=== PATIENT | female | born 1995 | race Caucasian/White ===

== ENCOUNTER 2021-06-01 06:58 | Emergency (ER) | payer OTHER ==
[~2021-06-01] VITALS: Ht 162.6 cm; Wt 61.0 kg
[2021-06-01 09:44] VITALS: BP 122/88
== END 2021-06-01 09:51 ==
LOC: ER 07:07
DX: Z02.2 Encounter for examination for admission to residential institution (principal); F15.10 Other stimulant abuse, uncomplicated
CPT/HCPCS: 99283